=== PATIENT | female | born 1955 | race Two or more races ===

== ENCOUNTER 2021-06-19 13:11 | Emergency (ER) | payer OTHER ==
[~2021-06-19] VITALS: Ht 157.5 cm; Wt 65.8 kg
[2021-06-19 15:15] VITALS: BP 100/50
== END 2021-06-19 15:15 | disposition home or self-care (01) ==
LOC: ER 13:11
DX: T59.2X1A Toxic effect of formaldehyde, accidental (unintentional), initial encounter (principal); R51.9 Headache, unspecified; Z88.2 Allergy status to sulfonamides; Z88.0 Allergy status to penicillin; Z90.710 Acquired absence of both cervix and uterus; Y92.89 Other specified places as the place of occurrence of the external cause
CPT/HCPCS: 70450; 71045

== ENCOUNTER 2021-12-03 15:56 | Emergency (ER) | payer OTHER, MEDICAID ==
[~2021-12-03] VITALS: Ht 162.6 cm; Wt 55.9 kg
[2021-12-03 16:25] VITALS: BP 99/69
[2021-12-03] MEDS ORDERED: IBUPROFEN 800 MG TAB PO ONE ×2 (16:45→17:15)
[2021-12-03] MEDS ORDERED: IBUP800T27 PO (18:01)
[2021-12-03] MEDS ORDERED: DICL1GEL EX (18:01)
== END 2021-12-03 18:15 | disposition home or self-care (01) ==
LOC: ER 16:01
DX: S93.401A Sprain of unspecified ligament of right ankle, initial encounter (principal); Z90.49 Acquired absence of other specified parts of digestive tract; Z90.710 Acquired absence of both cervix and uterus; Z79.1 Long term (current) use of non-steroidal anti-inflammatories (NSAID); Z79.899 Other long term (current) drug therapy; Z88.0 Allergy status to penicillin; Z88.2 Allergy status to sulfonamides; W10.9XXA Fall (on) (from) unspecified stairs and steps, initial encounter; Y93.89 Activity, other specified; Y92.89 Other specified places as the place of occurrence of the external cause; Y99.8 Other external cause status
CPT/HCPCS: 73610; 73630

== ENCOUNTER 2022-01-28 16:49 | Emergency (ER) | payer OTHER, MEDICAID ==
[~2022-01-28] VITALS: Ht 162.6 cm; Wt 60.0 kg
[~2022-01-28 16:49] MED LIST: DICL1GEL EX; IBUP800T27 PO
[2022-01-28] MEDS ORDERED: SODIUM CHLORIDE 0.9% 500 ML IV ONE ×2 (17:15→20:45)
[2022-01-28] MEDS ORDERED: LORazepam 2MG/ML-1ML VIAL IV ONE (17:30)
[2022-01-28 17:39] LABS: Basophils # (auto) 0.1 10 ^3/uL (0-0.2); Basophils % (auto) 0.9 % (0.0-2.0); Eosinophils # (auto) 0.1 10 ^3/uL (0-0.8); Eosinophils % (auto) 0.8 % (0.0-7.0); Hematocrit 46.6 % (36.0-46.0); Hemoglobin 15.3 g/dL (12.2-16.2); Lymphocytes # (auto) 3.7 10 ^3/uL (0.4-5.4); Lymphocytes % (auto) 32.1 % (10.0-50.0); Mean Corpuscular Hemoglobin 30.6 pg (28.0-32.0); Mean Corpuscular Hgb Conc. 32.8 g/dL (32.0-36.0); Mean Corpuscular Volume 93.3 fL (80.0-100.0); Monocytes # (auto) 1.2 10 ^3/uL (0-1.3); Monocytes % (auto) 10.3 % (0.0-12.0); Neutrophils # (auto) 6.4 10 ^3/uL (1.6-8.6); Neutrophils % (auto) 55.9 % (37.0-80.0); Nucleated Red Blood Cells % 0.4 %; Red Cell Distribution Width 13.4 % (11.8-14.3); White Blood Cell 11.5 10^3/uL (4.4-10.8)
[2022-01-28 18:27] LABS: Calcium 9.4 mg/dL (8.5-10.1); Potassium 4.1 mmol/L (3.5-5.1)
[2022-01-28 18:30] LABS: BUN/Creatinine Ratio 14.4; Bilirubin, Total 0.6 mg/dL (0.2-1.0); Total Protein 7.7 g/dL (6.4-8.2)
[2022-01-28] MEDS ORDERED: LORA0.5T20 PO (22:17)
[2022-01-28 23:00] VITALS: BP 140/70
== END 2022-01-28 22:20 | disposition home or self-care (01) ==
LOC: EDBD 16:49 → ER 16:49
DX: F41.9 Anxiety disorder, unspecified (principal); E86.0 Dehydration; F10.20 Alcohol dependence, uncomplicated; E78.5 Hyperlipidemia, unspecified; Z86.73 Personal history of transient ischemic attack (TIA), and cerebral infarction without residual deficits; Z90.49 Acquired absence of other specified parts of digestive tract; Z90.710 Acquired absence of both cervix and uterus; Z79.1 Long term (current) use of non-steroidal anti-inflammatories (NSAID); Z79.899 Other long term (current) drug therapy; Z88.0 Allergy status to penicillin; Z88.2 Allergy status to sulfonamides; Y90.1 Blood alcohol level of 20-39 mg/100 ml
CPT/HCPCS: 36415; 70450; 71045; 80053; 80320; 84484; 85025; 93005; 96361; 96374; 99284; J2060; J7040

== ENCOUNTER 2022-06-14 15:36 | Emergency (ER) | payer OTHER ==
[~2022-06-14] VITALS: Ht 157.5 cm; Wt 77.2 kg
[~2022-06-14 15:36] MED LIST changes: +LORA0.5T20 PO
[2022-06-14 16:46] LABS: Basophils # (auto) 0.1 10 ^3/uL (0-0.2); Basophils % (auto) 0.7 % (0.0-2.0); Eosinophils # (auto) 0.4 10 ^3/uL (0-0.8); Eosinophils % (auto) 4.8 % (0.0-7.0); Hematocrit 46.7 % (36.0-46.0); Hemoglobin 15.7 g/dL (12.2-16.2); Lymphocytes # (auto) 3.1 10 ^3/uL (0.4-5.4); Lymphocytes % (auto) 37.6 % (10.0-50.0); Mean Corpuscular Hemoglobin 30.8 pg (28.0-32.0); Mean Corpuscular Hgb Conc. 33.6 g/dL (32.0-36.0); Mean Corpuscular Volume 91.7 fL (80.0-100.0); Monocytes # (auto) 0.9 10 ^3/uL (0-1.3); Monocytes % (auto) 10.5 % (0.0-12.0); Neutrophils # (auto) 3.8 10 ^3/uL (1.6-8.6); Neutrophils % (auto) 46.4 % (37.0-80.0); Nucleated Red Blood Cells % 0.1 %; Red Cell Distribution Width 13.1 % (11.8-14.3); White Blood Cell 8.2 10^3/uL (4.4-10.8)
[2022-06-14 17:15] LABS: Albumin 3.3 g/dL (3.4-5.0); Calcium 8.9 mg/dL (8.5-10.1); Magnesium 2.3 mg/dL (1.6-2.6); Potassium 4.1 mmol/L (3.5-5.1)
[2022-06-14 17:18] LABS: BUN/Creatinine Ratio 18.7 (10.0-20.0); Bilirubin, Total 0.9 mg/dL (0.2-1.0); Total Protein 6.6 g/dL (6.4-8.2)
[2022-06-14] MEDS ORDERED: AMPICILLIN & SULBACTAM SODIUM 3 GM in SODIUM CHL 0.9% 100 ML IV SCH (20:30)
[2022-06-14] MEDS ORDERED: HYDROcodone-ACET 5/325MG TAB PO ONE (20:30)
[2022-06-14] MEDS ORDERED: CLINDAMYCIN 300MG IV 50 ML IV ONE (21:00)
[2022-06-14] MEDS ORDERED: DOXYCYCLINE 100MG/250ML 250 ML IV ONE (21:15)
[2022-06-14] MEDS ORDERED: CLINDAMYCIN HCL 150 MG CAP ONE (21:17)
[2022-06-14 21:20] VITALS: BP 150/67
[2022-06-14] MEDS ORDERED: CLINDAMYCIN HCL 150 MG CAP PO ONE (21:30)
== END 2022-06-14 21:40 | disposition short-term general hospital (02) ==
LOC: ER 15:36
DX: S02.40FA Zygomatic fracture, left side, initial encounter for closed fracture (principal); R55 Syncope and collapse; E78.5 Hyperlipidemia, unspecified; R06.02 Shortness of breath; Z90.710 Acquired absence of both cervix and uterus; Z86.73 Personal history of transient ischemic attack (TIA), and cerebral infarction without residual deficits; W18.39XA Other fall on same level, initial encounter; Y93.89 Activity, other specified; Y92.89 Other specified places as the place of occurrence of the external cause; Y99.8 Other external cause status
CPT/HCPCS: 36415; 70450; 70486; 71045; 72125; 80053; 83735; 83880; 84484; 85025; 93005

== ENCOUNTER 2024-01-19 20:02 | Emergency (ER) | payer OTHER ==
[~2024-01-19] VITALS: Ht 157.5 cm; Wt 68.1 kg
[~2024-01-19 20:02] MED LIST changes: +IBUP-1456 PO; -IBUP800T27 PO; +LORA-1121 PO; -LORA0.5T20 PO
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
[2024-01-19] MEDS: ACETAMINOPHEN 325 MG TAB PO ONE (21:27)
--- NOTE | 2024-01-19 22:09 | DVH ---
CLINICAL INDICATION: fall TECHNIQUE: XY R WRIST 3+ VIEW XRAY Comparison: None FINDINGS/IMPRESSION: Displaced and angulated fracture of the distal radial metaphysis and avulsion fracture of the ulnar s tyloid process. There is adjacent soft tissue edema.
[2024-01-19 23:03] VITALS: BP 132/62; PULSE 56; RESP 19; TEMP 97.9; O2SAT 98
== END 2024-01-19 23:20 | disposition home or self-care (01) ==
LOC: EDBD 20:02 → ER 20:02
DX: S52.591A Other fractures of lower end of right radius, initial encounter for closed fracture (principal); S52.691A Other fracture of lower end of right ulna, initial encounter for closed fracture; E78.5 Hyperlipidemia, unspecified; Z88.0 Allergy status to penicillin; Z88.2 Allergy status to sulfonamides; Z79.899 Other long term (current) drug therapy; Z90.49 Acquired absence of other specified parts of digestive tract; Z90.710 Acquired absence of both cervix and uterus; Z98.890 Other specified postprocedural states; W18.39XA Other fall on same level, initial encounter; Y93.89 Activity, other specified; Y92.89 Other specified places as the place of occurrence of the external cause; Y99.8 Other external cause status
CPT/HCPCS: 29125; 73110

== ENCOUNTER 2024-01-22 10:12 | Emergency (ER) | payer OTHER ==
[~2024-01-22] VITALS: Ht 157.5 cm; Wt 58.4 kg
[2024-01-22 11:04] VITALS: BP 123/66; PULSE 120; RESP 20; TEMP 98.9; O2SAT 96
--- NOTE | 2024-01-22 11:13 | ED.PDOC ---
Musculoskeletal HPI Comments 68 y/o female pt presents to clinic for nausea and vomiting more than 10 times. Chief Complaint: Upper Extremity Time Seen by MD: 10:39 Primary Care Provider: [facility] Allergies: Coded Allergies: Penicillins (Verified Allergy, Unknown, 06/19/21) Sulfa Antibiotics (Verified Allergy, Unknown, 06/19/21) Home Meds Active Scripts Ondansetron Odt 4MG Tab (ZOFRAN PO) 4 Mg Tb, 8 MG PO Q8HP PRN for 10 Days, #60 TAB 0 Refills ODT TAB-DISSOLVE IN MOUTH, THEN SWALLOW Prov:DEIRDRE BENITEZ [facility] 01/22/24 Acetaminophen W/ Codeine (Tylenol W/Cod #3) 1 Tab Tb, 1 TAB PO Q8HP PRN for 3 Days, #9 TAB 0 Refills Prov:NISREENTayaDEIRDRE [facility] 01/22/24 Lorazepam (ATIVAN TABLET) 0.5 Mg Tb, 1 TAB PO TID PRN for 4 Days, #12 TAB Prov:KATIE SOLARES MD 01/28/22 Diclofenac Sodium (Topical) (Qc Diclofenac Sodiium) 1 % Gel, 1 % EX QID for 15 Days, #1 GEL Prov:MUSTAPHA ROSARIO [facility] 12/03/21 Ibuprofen (Ibuprofen) 800 Mg Tab, 1 TAB PO TID PRN for 15 Days, #45 TAB 1 Refill Prov:MUSTAPHA ROSARIO [facility] 12/03/21 Mode of Arrival: Ambulatory Past Medical History PAST MEDICAL HISTORY: Depression, High Lipids, TIA Surgical History: Appendectomy, Hysterectomy, Tonsillectomy 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 Family History Family History: Reviewed,noncontributory to illness Social History Smoker: Non-Smoker Alcohol: Rarely Drugs: Denies Drug Use Lives In: Homeless Physical Exam General Appearance: No Apparent Distress, Normal HEENT: Normal ENT Inspection, Pharynx Normal, TMs Normal Neck: Full Range of Motion, Non-Tender, Normal, Normal Inspection Respiratory: Chest Non-Tender, Lungs Clear, No Respiratory Distress Cardiovascular: No Edema, No JVD, No Murmur, No Gallop, Normal Peripheral Pulses, Regular Rate/Rhythm Breast Exam: Deferred Gastrointestinal: No Organomegaly, Non Tender, No Pulsatile Mass, Normal Bowel Sounds, Soft, Other (Vomiting and nausea) Genitalia: Deferred Pelvic: Deferred Rectal: Deferred Extremities: Normal capillary refill, Normal inspection, Normal range of motion, Other (Splint in place on right wrist) Neurologic: Alert, vrt mechanic II-XII nml as Tested, No Motor Deficits, Normal Affect, Normal Mood, No Sensory Deficits Cerebellar Function: Normal Reflexes: Normal Skin: Dry, Normal Color, Warm Lymphatic: No Adenopathy X-Ray, Labs, Meds, VS Vital Signs Date Time Temp Pulse Resp B/P (MAP) Pulse Ox O2 Delivery O2 Flow Rate FiO2 01/22/24 11:04 98.9 120 20 123/66 (85) 96 98.9 01/22/24 11:04 120 20 96 Room Air 01/22/24 10:18 99.6 127 18 149/64 (92) 96 Lab Test 01/22/24 13:27 Range/Units Influenza Type A Antigen Pending Influenza Type B Antigen Pending SARS-CoV-2 Antigen (Rapid) Pending Group A Streptococcus Rapid Pending Current Medications Medications (Trade) Dose Ordered Sig/Evelina Route Start Time Stop Time Status Last Admin Ondansetron HCl (Zofran Po) 8 mg ONCE ONCE PO 01/22/24 11:15 01/22/24 11:19 DC 01/22/24 11:39 Ketorolac Tromethamine (Toradol Injection) 60 mg ONCE ONCE IM 01/22/24 11:15 01/22/24 11:19 DC 01/22/24 11:38 Acetaminophen/ Codeine Phosphate (Tylenol W/Cod #3 Tablet) 2 tab ONCE ONCE PO 01/22/24 13:00 01/22/24 13:01 DC 01/22/24 13:05 PATIENT: VICK CHAVEZT: [id number]: [id number] : 1955 LOC: ER ROOM / BED: / AGE / SEX: 68 / F ADM STATUS: REG ER SERVICE 1132 ORDERING PHYSICIAN: DEIRDRE BENITEZ PROCEDURE(s): CXR2 - CHEST TWO VIEWS ROUTINE REASON: cough ORDER NUMBER(s): [id number], ACCESSION NUMBER(s): [id number] EXAM: XY CHEST TWO VIEWS ROUTINE CLINICAL HISTORY: cough COMPARISON: None TECHNIQUE: Frontal and lateral view of the chest was obtained FINDINGS: Lines and Tubes: None Lungs: No focal consolidation. Pleura: No effusion. No pneumothorax. Cardiomediastinal contours: Unremarkable Bones: No acute osseous abnormality. IMPRESSION: No acute cardiopulmonary disease. ATED BY: SLIME CHURCH MD DICTATED DATE/TIME: 01/22/24 1201 SIGNED BY: SLIME CHURCH MD SIGNED DATE/TIME: 01/22/24 1201 CC: Time of 1ST Reevaluation: 12:26 Reevaluation 1ST: Improved Time of 2ND Reevaluation: 13:40 Reevaluation 2ND: Improved Time of 3RD Reevaluation: 12:55 Reevaluation 3RD: Worsened Patient Education/Counseling: Diagnosis, Treatment, Prognosis Family Education/Counseling: Diagnosis, Treatment, Prognosis Departure 1 Departure Time of Disposition: 13:41 Impression: Primary Impression: Nausea & vomiting Additional Impression: Wrist fracture, right Disposition: 01 HOME / SELF CARE / HOMELESS Condition: Stable e-Prescriptions Ondansetron Odt 4MG Tab (ZOFRAN PO) 4 Mg Tb 8 MG PO Q8HP PRN for 10 Days, #60 TAB 0 Refills ODT TAB-DISSOLVE IN MOUTH, THEN SWALLOW Prov: SON BENITEZE [facility] 01/22/24 Acetaminophen W/ Codeine (Tylenol W/Cod #3) 1 Tab Tb 1 TAB PO Q8HP PRN for 3 Days, #9 TAB 0 Refills Prov: DEIRDRE BENITEZ [facility] 01/22/24 Discharged With: Self Critical Care Note Critical Care Time?: No Stability Stability form required: No Heart Score Heart Score: Heart Score Response (Comments) Value History N/A 0 EKG N/A 0 Age N/A 0 Risk Factors N/A 0 Troponin N/A 0 Total 0 ELIDEIRDRE [facility] Jan 22, 2024 11:13
[2024-01-22] MEDS: KETOROLAC TROMETH 60MG/2ML VIAL IM ONE (11:38)
[2024-01-22] MEDS: ONDANSETRON ODT 4 MG TAB PO ONE (11:39)
--- NOTE | 2024-01-22 12:02 | DVH ---
EXAM: XY CHEST TWO VIEWS ROUTINE CLINICAL HISTORY: cough COMPARISON: None TECHNIQUE: Frontal and lateral view of the chest was obtained FINDINGS: Lines and Tubes: None Lungs: No focal consolidation. Pleura: No effusion. No pneumothorax. Cardiomediastinal contours: Unremarkable Bones: No acute osseous abnormality. IMPRESSION: No acute cardiopulmonary disease.
[2024-01-22] MEDS ORDERED: ACE3T PO (12:34)
[2024-01-22] MEDS ORDERED: ZOFR4T PO (12:36)
[2024-01-22] MEDS: ACETAMINOPHEN/CODEINE#3 (300/30mg) TAB PO ONE (13:05)
[2024-01-22 14:29] LABS: Rapid Strep A Screen-Throat Negative
[2024-01-22 14:46] LABS: COVID19 ANTIGEN SOFIA FIA NEGATIVE (NEGATIVE)
[2024-01-22 14:49] LABS: Rapid Influenza A Negative (Negative); Rapid Influenza B Negative (Negative)
== END 2024-01-22 13:48 | disposition home or self-care (01) ==
LOC: ER 10:12
DX: S52.591D Other fractures of lower end of right radius, subsequent encounter for closed fracture with routine healing (principal); S52.611D Displaced fracture of right ulna styloid process, subsequent encounter for closed fracture with routine healing; R11.2 Nausea with vomiting, unspecified; F32.9 Major depressive disorder, single episode, unspecified; E78.5 Hyperlipidemia, unspecified; Z86.73 Personal history of transient ischemic attack (TIA), and cerebral infarction without residual deficits; Z90.49 Acquired absence of other specified parts of digestive tract; Z90.710 Acquired absence of both cervix and uterus; Z59.00 Homelessness unspecified; Z88.0 Allergy status to penicillin; Z88.2 Allergy status to sulfonamides; Z79.899 Other long term (current) drug therapy; Z20.822 Contact with and (suspected) exposure to COVID-19; X58.XXXD Exposure to other specified factors, subsequent encounter
CPT/HCPCS: 36415; 71046; 87070; 87426; 87804; 87880; 96372; 99284; J1885; Q0162

== ENCOUNTER 2024-11-08 14:42 | Emergency (ER) | payer OTHER ==
[~2024-11-08] VITALS: Ht 160 cm; Wt 57.0 kg
[~2024-11-08 14:42] MED LIST changes: +ACE3T PO; +ZOFR4T PO
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
[2024-11-08 15:45] LABS: Urine Protein, UAD Negative (Negative)
--- NOTE | 2024-11-08 15:50 | DVH ---
Procedure: CT HEAD WITHOUT CONTRAST Study Date and Requested Time: 11/08/2024 03:11 PM History: fall Comparison: CT HEAD WITHOUT CONTRAST on DOS: 06/14/22, HEAD WITHOUT CONTRAST on DOS: 01/28/22, HEAD WI THOUT CONTRAST on DOS: 06/19/21 Dose: CTDI: 47.92 mGy DLP: 1.71 mGycm Technique: Multiplanar images obtained through the brain without intravenous contrast. Findings: Mild Diffuse brain atrophy. Mild chronic small vessel ischemic changes. No hemorrhages, masses, mass effect, midline shift, herniation or cytotoxic edema following a large v ascular territory. No intra-axial or extra-axial fluid collections. No evidence of hydrocephalus. The basal cisterns are patent. The pituitary gland, sella and parasellar regions are unremarkable. The cerebellar tonsils are in nor mal position. The cerebellum is unremarkable. The orbits and globes are unremarkable. Partially visualized mucoperiosteal thickening of the mass or act sinuses, ethmoid air cells and left sphenoid sinus. There appears to be CT of the left lamina pa pyracea of unknown chronicity. No worrisome calvarial lesions. Significant left sided periorbital sof t tissue edema/hematoma. Mild right-sided periorbital soft tissue edema / hematoma. Impression: No evidence of acute intracranial abnormality. Significant left-sided with mild right-sided periorbital soft tissue edema/ hematoma. The partially v isualized orbits and globes otherwise unremarkable.
--- NOTE | 2024-11-08 16:03 | DVH ---
Procedure: CT MAXILLOFACIAL WITHOUT Study Date and Requested Time: 2024 03:13 PM History: fall Comparison: CT FACIAL WO on DOS: 07/11/23, CT MAXILLOFACIAL WITHOUT on DOS: 06/14/22 Dose: CTDI: 60.97 mGy DLP: 1.78 mGycm Technique: Multiplanar images obtained through the face without intravenous contrast. Findings: Significant left-sided periorbital with mild right-sided periorbital soft tissue edema / hematoma ext ending over the right lateral nose. Otherwise, the globes are unremarkable. The extraocular muscles are unremarkable. There appears to be chronic deformity of the left lamina papyracea. There is left-sided chronic inferior orbital wall , lateral orbital wall and zygomatic arch fractures . There is dehiscence of the medial and anterolateral inferior maxillary sinus wall. Mucoperiosteal thi ckening of the maxillary sinuses, sphenoid sinuses and ethmoid air cells.. The bilateral mastoids and middle ears are clear. Rightward deviation of the nasal septum. No nasal masses are visualized. The nasopharynx, oropharynx and hypopharynx unremarkable. Limited evaluation of the mandible due to motion. Impression: Limited evaluation of the mandible due to motion. No evidence of acute traumatic fractures. Chronic fractures of the left inferior and lateral orbital doherty and left zygomatic arch. Chronic appearing fracture of the left lamina papyracea. Significant left-sided with mild right-sided periorbital soft tissue edema. Sinus disease involving the bilateral maxillary, bilateral ethmoid and bilateral sphenoid sinuses wit h partial dehiscence of the right maxillary sinus wall.
[2024-11-08 19:02] VITALS: BP 120/81; PULSE 84; RESP 16; TEMP 98; O2SAT 99
== END 2024-11-08 19:21 | disposition home or self-care (01) ==
LOC: EDBD 14:42 → ER 14:42
DX: S05.12XA Contusion of eyeball and orbital tissues, left eye, initial encounter (principal); S09.8XXA Other specified injuries of head, initial encounter; F10.29 Alcohol dependence with unspecified alcohol-induced disorder; F32.A Depression, unspecified; E78.5 Hyperlipidemia, unspecified; F12.90 Cannabis use, unspecified, uncomplicated; Z90.710 Acquired absence of both cervix and uterus; Z90.49 Acquired absence of other specified parts of digestive tract; Z88.0 Allergy status to penicillin; Z86.73 Personal history of transient ischemic attack (TIA), and cerebral infarction without residual deficits; Z59.00 Homelessness unspecified; Z88.2 Allergy status to sulfonamides; Z79.899 Other long term (current) drug therapy; Y08.89XA Assault by other specified means, initial encounter; Y93.89 Activity, other specified; Y92.89 Other specified places as the place of occurrence of the external cause; Y99.8 Other external cause status; Y90.9 Presence of alcohol in blood, level not specified
CPT/HCPCS: 70450; 70486; 81001